=== PATIENT | female | born 1980 | race Caucasian/White ===

== ENCOUNTER 2019-05-10 18:42 | Emergency (ER) | payer OTHER ==
--- NOTE | 2019-05-10 19:01 | ED Physician Documentation ---
PD HPI CHEST PAIN - Stated complaint Stated Complaint: CHEST PAIN - Chief complaint Chief Complaint: Cardiac - History obtained from History obtained from: Patient - History of Present Illness Timing - onset: Today (This is a 39-year-old woman who has fibromyalgia and is on estrogen containing control. She got back from [place] about 2 weeks ago. Over the last 2 months she is been having trouble with shortness of breath and recently had pulmonary function testing done with unknown results. She been having some ongoing very mild chest pain but today it has been more severe, a dull ache under the left breast and nonradiating. She has a dry mouth but no nausea or new shortness of breath. No calf pain or pedal edema. No history of coronary disease or other heart problems, no history of DVT or PE.) Review of Systems Ten Systems: 10 systems reviewed and negative Constitutional: reports: Myalgias. denies: Fever, Chills Nose: denies: Rhinorrhea / runny nose, Congestion Cardiac: reports: Chest pain / pressure. denies: Palpitations, Pedal edema, Calf pain Respiratory: reports: Dyspnea. denies: Cough, Hemoptysis, Wheezing GI: denies: Abdominal Pain PD PAST MEDICAL HISTORY - Present Medications Home Medications: Ambulatory Orders Medication Instructions Recorded Confirmed Amitriptyline [Elavil] 10 mg PO DAILY PM 05/10/19 05/10/19 Estradiol 0.5 mg PO DAILY 05/10/19 05/10/19 Lorazepam [Ativan] 0.5 mg PO PRN PRN 05/10/19 05/10/19 Omeprazole 20 mg PO DAILY #30 capsule. 05/10/19 Tizanidine HCl 4 mg PO PRN PRN 05/10/19 05/10/19 - Allergies Allergies/Adverse Reactions: Allergies Allergy/AdvReac Type Severity Reaction Status Date / Time No Known Drug Allergies Allergy Verified 05/10/19 18:51 PD ED PE NORMAL - Vitals Vital signs reviewed: Yes - General General: Alert and oriented X 3, No acute distress - HEENT HEENT: PERRL, EOMI - Neck Neck: Supple, no meningeal sign, No bony TTP - Cardiac Cardiac: RRR, No murmur - Respiratory Respiratory: No respiratory distress, Clear bilaterally - Abdomen Abdomen: Normal bowel sounds, Soft, Non tender - Back Back: No CVA TTP, No spinal TTP - Derm Derm: Normal color, Warm and dry - Extremities Extremities: No edema, No calf tenderness / cord - Neuro Neuro: Alert and oriented X 3, Normal speech Results - Vitals Vitals: Vital Signs - 24 hr 05/10/19 05/10/19 18:47 18:54 Temperature 36.9 C Heart Rate 76 Respiratory 18 Rate Blood Pressure 136/86 H Blood Pressure 117/92 H [Right] O2 Saturation 98 Oxygen O2 Source Room air - EKG (time done) 1851 Rate: Rate (enter#) Rhythm: NSR [place]: Normal Intervals: Normal [place] QRS: Normal Ischemia: Normal ST segments Computer interpretation: Agree with computer - Labs Labs: Laboratory Tests 05/10/19 05/10/19 05/10/19 19:05 19:05 19:05 WBC 7.2 RBC 4.24 Hgb 13.3 Hct 39.2 MCV 92.5 MCH 31.4 H MCHC 33.9 RDW 12.4 Plt Count 245 MPV 9.3 Neut # (Auto) 4.1 Lymph # (Auto) 2.4 [place] # (Auto) 0.5 Eos # (Auto) 0.1 Baso # (Auto) 0.0 Absolute Nucleated RBC 0.00 Nucleated RBC % 0.0 D-Dimer Sodium 140 Potassium 3.5 Chloride 102 Carbon Dioxide 27 Anion Gap 11.0 BUN 11 Creatinine 1.1 H Estimated GFR (MDRD) 55 L Glucose 123 H Calcium 9.3 Total Bilirubin 0.6 AST 19 ALT 16 Alkaline Phosphatase 54 Troponin I < 0.04 Total Protein 7.1 Albumin 4.2 Globulin 2.9 Albumin/Globulin Ratio 1.4 Lipase 30 05/10/19 19:05 WBC RBC Hgb Hct MCV MCH MCHC RDW Plt Count MPV Neut # (Auto) Lymph # (Auto) [place] # (Auto) Eos # (Auto) Baso # (Auto) Absolute Nucleated RBC Nucleated RBC % D-Dimer 247.2 Sodium Potassium Chloride Carbon Dioxide Anion Gap BUN Creatinine Estimated GFR (MDRD) Glucose Calcium Total Bilirubin AST ALT Alkaline Phosphatase Troponin I Total Protein Albumin Globulin Albumin/Globulin Ratio Lipase PD MEDICAL DECISION MAKING - ED course ED course: 39-year-old woman with a days worth of atypical chest pain. Recent travel to [place] and on estrogens so PE was high in the differential but d-dimer was negative. Later she also mentioned that she had had similar symptoms a few weeks ago and was seen in another hospital with a negative work-up. She is having some GI symptoms that the possibility, but there is also clearly an overlying and severe anxiety component. We talked for a long time about this and she is going to restart some as needed Ativan which she has and I will add a PPI. She was in counseling for anxiety but stopped and I encouraged her to re- enroll. Departure - Departure Disposition: 01 Home, Self Care Clinical Impression: Atypical chest pain Condition: Good Record reviewed to determine appropriate education?: Yes Health Concerns: chest pain Plan of Treatment: r/o mi and r/o PE Care Goals: diagnosis and treatment Assessment: as above Instructions: ED Chest Pain Atypical Unkn Cause Prescriptions: Omeprazole 20 mg PO DAILY #30 capsule. Comments: Take Lorazepam as needed as discussed. Follow-up with your physician for further evaluation and treatment. Return for new or worsening symptoms. As discussed I also recommend re-enrolling in counseling.
[2019-05-10 19:12] LABS: BASOPHILS % (AUTO) 0.4 %; EOSINOPHILS # (AUTO) 0.1 10^3/uL (0.0-0.7); EOSINOPHILS % (AUTO) 1.7 %; HGB - HEMOGLOBIN 13.3 g/dL (12.0-16.0); LYMPHOCYTES # (AUTO) 2.4 10^3/uL (1.5-3.5); MEAN CORPUSCULAR HEMOGLOBIN 31.4 pg (27.0-31.0); MEAN CORPUSCULAR HGB CONC 33.9 g/dL (32.0-36.0); MEAN CORPUSCULAR VOLUME 92.5 fL (81.0-99.0); MEAN PLATELET VOLUME 9.3 fL (7.9-10.8); MONOCYTES # (AUTO) 0.5 10^3/uL (0.0-1.0); MONOCYTES % (AUTO) 6.3 %; NEUTROPHILS # (AUTO) 4.1 10^3/uL (1.5-6.6); NEUTROPHILS % (AUTO) 57.3 %; PLT - PLATELET COUNT 245 10^3/uL (130-450); RED BLOOD COUNT 4.24 10^6/uL (4.20-5.40); RED CELL DISTRIBUTION WIDTH 12.4 % (12.0-15.0); WHITE BLOOD COUNT 7.2 x10^3/uL (4.8-10.8)
[2019-05-10 19:26] LABS: ALBUMIN 4.2 g/dL (3.2-5.5); ALBUMIN/GLOBULIN RATIO 1.4 (1.0-2.2); BILIRUBIN,TOTAL 0.6 mg/dL (0.2-1.0); CALCIUM 9.3 mg/dL (8.5-10.3); CREATININE 1.1 mg/dL (0.4-1.0); TOTAL PROTEIN 7.1 g/dL (6.7-8.2)
--- NOTE | 2019-05-10 19:53 | XRAY Report ---
Reason: chest pain Procedure Date: 05/10/2019 Accession Number: [id number] / [id number] Procedure: XR - Chest 2 View X-Ray CPT Code: 84424 FULL RESULT: EXAM: CHEST RADIOGRAPHY EXAM DATE: 05/10/2019 07:39 PM. CLINICAL HISTORY: Chest pain. COMPARISON: None. TECHNIQUE: 2 views. FINDINGS: Lungs/Pleura: No focal opacities evident. No pleural effusion. No pneumothorax. Normal volumes. Mediastinum: Heart and mediastinal contours are unremarkable. Other: None. IMPRESSION: 1. No acute disease in the chest. [facility]
[2019-05-10] MEDS ORDERED: PANTOPRAZOLE 40 MG TABLET PO STA (20:21)
[2019-05-10 20:32] VITALS: BP 116/78
== END 2019-05-10 20:38 | disposition home or self-care (01) ==
LOC: ED 18:42
DX: R07.89 Other chest pain (principal)
CPT/HCPCS: 36415; 71046; 80053; 83690; 84484; 85025; 85379; 93005; 99283; 99284; A9270